=== PATIENT | male | born 1950 | race Caucasian/White ===

== ENCOUNTER 2019-03-31 12:31 | Outpatient (CLI) | payer MEDICARE, OTHER | END 2019-03-31 12:33 | LOC: LAB 12:31 | PROVIDERS: ATTEND Physician Assistant | DX: E55.0 Rickets, active (principal); W57.XXXA Bitten or stung by nonvenomous insect and other nonvenomous arthropods, initial encounter | CPT/HCPCS: 36415; 86757 ==